=== PATIENT | female | born 1975 | race Caucasian/White ===

== ENCOUNTER → 2023-01-10 | Outpatient (CLI) | payer SELFPAY ==
--- NOTE | 2023-01-10 09:54 | RAD_ITS ---
EXAM: XR RIGHT HAND COMPLETE, 3 OR MORE VIEWS CLINICAL INDICATION: POLYARTHRALGIA TECHNIQUE: Frontal, lateral and oblique views of the right hand. COMPARISON: No relevant prior studies available. FINDINGS: BONES/JOINTS: Unremarkable. No acute fracture. No subluxation. Normal alignment. Preservation of the joint space. No sclerotic or destructive changes observed. SOFT TISSUES: Unremarkable. No soft tissue swelling or gas. No radiopaque foreign body. RAD/Hand Min 3 Views IMPRESSION: Negative right hand x-rays. Electronically Signed: Davin Vargas MD at 4:15 EDT ,
--- NOTE | 2023-01-10 09:54 | RAD_ITS ---
INDICATION: POLYARTHRALGIA EXAMINATION/TECHNIQUE: X-RAY - XR Sacrum/Coccyx Min 2 Views COMPARISON: None. FINDINGS: SACRUM/COCCYX: No displaced fracture, destructive or sclerotic lesions. Note that overlapping bowel shadows may however obscure fine detail in the frontal view. Normal bilateral hip alignment with preserved joint spacing and mild superior acetabular osteophyte formation. SACRO-ILIAC JOINTS: Normal alignment. No erosive changes or gross sclerosis. Minimal inferior osteophyte formation. SOFT TISSUES: No soft tissue swelling or gas. Bilateral tubal ligation clips. Large colonic stool burden. RAD/Sacrum-Coccyx min 2 Views IMPRESSION: No evidence of sacroiliitis Mild right hip osteoarthritis. Electronically Signed: Asif Sanchez MD at 3:16 EDT ,
== END | disposition home or self-care (01) ==
PROVIDERS: PCP Physician Assistant; Referring Provider Physician Assistant; Visit Provider Physician Assistant
DX: M25.50 Pain in unspecified joint (principal)
CPT/HCPCS: 72220; 73130

== ENCOUNTER 2023-08-29 08:42 | Day surgery (SDC) | payer SELFPAY ==
[2023-08-29] VITALS (7 sets, daily range): BP systolic 75–124; BP diastolic 56–72; PULSE 42–80; RESP 16–18; TEMP 36.1–36.7; O2SAT 99–100; BMI 22.9
--- OUTSIDE RECORDS SUMMARY | 2023-08-29 08:54 | XMS RPT_ITS | CCD ---
Author Name Unknown Address [address] [place] [address] Organization [facility] Care Team Providers Care Associate Embalmer/Funeral Director Name Role Phone EVELYNE FLANNERY Consulting Unavailable EVELYNE FLANNERY Primary Care Unavailable MINNIE THOMSON DO Attending Unavailable EVELYNE FLANNERY Primary Care Unavailable MINNIE THOMSON DO Attending Unavailable EVELYNE PAUL Attending Unavailable EVELYNE PAUL Consulting Unavailable EVELYNE PAUL Primary Care Unavailable EVELYNE PAUL Admitting Unavailable PROVIDER, UNKNOWN Consulting Unavailable Evelyne Paul PA-C Unavailable Evelyne Paul PA-C Unavailable Urologist Provider Unavailable Unavailable Railroad Car Truck Builder/Gynecology Prov. Unavailable Un available [facility] Unavailable [phone] Rheumatolgy Provider Unavailable Unavailable Jess Stephen PA-C Unavailable Melvin PERDOMO, Joel Unavailable Unavailable Froy OSEI, Maria D Lyman Unavailable Unavailable Maria Elena KNOTTING MACHINE OPERATOR, Jeanine Dobbs Unavailable Unavailab rocío Good MD, Marty Mendez Unavailable Vess KNOTTING MACHINE OPERATOR, Rachana Ayala Unavailable Unavailable Franklin DE LA ROSANSonya Unavailable Unavailabl e Unavailable Unavailable Medications Completed/Discontinued Medications Medication Drug Class(es) Dates Sig (Normalized) Sig (Original) azithromycin 250 mg oral tablet (2 sources) Macrolide Antimicrobial Start: 03-17-2011 End: 10-23-2012 ZITHROMAX Z-YESSENIA, 250MG (Oral Tablet) ; 2 (two) Tabs day one, then one daily for 4 days for 0 days Quantity: 1 {Z-pack} Refills: 0 Ordered: 23-Oct-2012 FOZIA Stephen Start: 17-Mar-2011 End: 23-Oct-2012 Status: Inactive methylPREDNISolone 4 mg oral tablet (2 sources) Corticosteroid Start: 06-17-2020 End: 06-23-2020 Medrol 4 MG Oral Tablet Therapy Pack ; 1 Tab as directed for 6 days Quantity: 1 {Dose_Pack} Refills: 0 Ordered: 17-Jun-2020 FOZIA Stephen Start: 17-Jun-2020 End: 23-Jun-2020 Status: Inactive predniSONE 20 mg oral tablet (2 sources) Start: 03-23-2016 End: 02-01-2018 take 3 tablets by mouth once daily, then take 2 tablets by mouth once daily, then take 1 tablet by mouth once daily, then take 0.5 tablet by mouth once daily PredniSONE 20 MG Oral Tablet ; 1 (one) Tablet as directed below for 0 days Quantity: 20 {Tablet} Refills: 0 Ordered: 01-Feb-2018 FARNAZ Mcduffie Start: 23-Mar-2016 End: 01-Feb-2018 Status: Inactive Comments: Take 3tabs qd for 3 days thenTake 2tabs qd for 3 days thenTake 1tab qd for 3 days thenTake 1/2tab qd for 4 days. Problems Active Problems Problem Classification Problem Date Documented Da te Episodic/Chronic Abdominal pain (8 sources) Pelvic and perineal pain; Translations: [Acute abdominal pain] Onset: 05-19-2023 Episodic Allergic reactions (4 sources) Inflammatory dermatosis; Translations: [Dermatitis, unspecified] 10-23-2012 Episodic Gastrointestinal hemorrhage (4 sources) Hematochezia; Translations: [Melena] 07-10-2023 Episodic Genitourinary symptoms and ill-defined conditions (8 sources) Microscopic hematuria; Translations: [Other microscopic hematuria] 07-12-2023 Episodic Menopausal disorders (4 sources) Postmenopausal bleeding; Translations: [Postmenopausal bleeding] 01-04-2023 Chronic Other aftercare (4 sources) Drug indicated; Translations: [Other truck terminal manager (current) drug therapy] 03-17-2011 Episodic Other connective tissue disease (2 sources) Pain in right hand; Translations: [Pain in right hand] Onset: 05-19-2023 Episodic Other connective tissue disease (2 sources) Pain in left hand; Translations: [Pain in left hand] Onset: 05-19-2023 Episodic Other female genital disorders (4 sources) Pain in female genitalia on intercourse; Translations: [Unspecified dyspareunia] 01-04-2023 Chronic Other non-traumatic joint disorders (8 sources) Joint pain; Translations: [Pain in unspecified joint] 11-19-2018 Episodic Other non-traumatic joint disorders (4 sources) Joint swelling; Translations: [Effusion, unspecified joint] 01-04-2023 Episodic Other non-traumatic joint disorders (8 sources) Multiple joint pain; Translations: [Pain in unspecified joint] 01-12-2023 Episodic Other screening for suspected conditions (not mental disorders or infectious disease) (20 sources) Breast finding ; Translations: [Inconclusive mammogram] 01-04-2023 Episodic Unclassified (2 sources) deliveries 01-04-2023 Past or Other Problems Problem Classification Problem Date Documented Da te Episodic/Chronic Unclassified (2 sources) Abdominal pain - The onset of the abdominal pain has been gradual and has been occurring in a persistent pattern for 1 year. The course has been constant. The pain is described as moderate. The pain is located in the right lower quadrant and does not radiate. The symptoms are aggravated by nothing (she feels that occasionally when she has excess gas, mass/fulness seems to move and laying directly on stomach helps to relieve pain) but are relieved by nothing (sometimes lying on stomach, pain is relieved). There has been no associated abdominal distention, amenorrhea, bloating, bloody stools, constipation, dark urine, diarrhea, dysuria, fever, heartburn, hematuria, jaundice, nausea, vaginal bleeding or vomiting. Note for Abdominal pain : patient is , 3 csections and 1 vaginal delivery; DENIES pain, is here today for palpable mass in abdomen - finds it difficult to describe and qualify 11-19-2018 Unclassified (2 sources) Hand pain - The onset of the hand pain has been gradual following no specific incident and has been occurring in an intermittent pattern for 3 days (states that she has has some stifness in the thumb over the past 2 months, but no pain, redness or swelling until 2 days ago). The course has been gradually worsening. The hand pain is characterized as a moderate sharp stabbing. The hand pain is described as being located in the thumb. The hand pain is aggravated by any movement. The pain has been relieved by ice and NSAIDs. The symptoms have been associated with joint swelling, painful ROM, decreased ROM, warmth, difficulty opening doors and difficulty with fine motor skills, but have not been associated with fever or chills. There have been no previous diagnostic tests. There has been no previous evaluations. There has been no previous occupational therapy. There have been no previous surgeries. There has been no use of assistive devices. Note for Hand pain : Mom has history of RA; she denies excess alcohol or organ meat consumption 03-23-2016 Results Test Name Value Interpretation Reference Range Facil ity Vital Signs Date Time Vital Sign Value Performing Clinician Faci lity 01-04-2023 09:55-0400 Body weight 55.34 kg Joel Charles [facility], [facility] 01-04-2023 09:55-0400 Diastolic blood pressure 64 mm[Hg] Joel Charles [facility], [facility].; [facility], [facility]. Encounters Encounter Date Encounter Type Care Provider Facility Start: 07-12-2023 End: 07-12-2023 Orders Evelyne Paul PA-C [facility] [facility] Start: 07-10-2023 End: 07-10-2023 Orders Evelyne Paul PA-C [facility] [facility] Start: 07-08-2023 End: 07-08-2023 ambulatory EVELYNE Cheri PAUL [facility] Start: 07-05-2023 End: 07-05-2023 Orders Evelyne Paul PA-C [facility] [facility] Start: 05-19-2023 End: 05-24-2023 ambulatory EVELYNE PAUL PA Facility:A Start: 01-12-2023 End: 01-12-2023 Orders Evelyne Paul PA-C [facility]: [facility] [facility]. Start: 01-06-2023 End: 01-06-2023 Orders Evelyne Paul PA-C Work Phone: [facility], [facility] Start: 01-04-2023 End: 01-04-2023 Patient encounter procedure Evelyne Paul PA-C Work Phone: [employer] Start: 01-04-2023 End: 01-04-2023 Patient encounter status Joel Charles CONOR [employer] [employer]. Start: 06-17-2020 End: 06-17-2020 Medication Evelyne Paul PA-C Work Phone: [employer]. Start: 11-20-2018 End: 11-20-2018 Orders Evelyne Paul PA-C Work Phone: [employer]. Start: 11-19-2018 End: 11-19-2018 Patient encounter procedure Evelyne Paul PA-C Work Phone: [employer]. Start: 05-03-2017 End: 05-04-2017 Ambulatory Facility:[facility] Start: 03-23-2016 End: 03-23-2016 Patient encounter procedure Evelyne Paul PA-C Work Phone: [employer]. Start: 06-08-2015 End: 06-08-2015 Orders Evelyne Paul PA-C Work Phone: [employer]. Start: 05-07-2015 End: 05-07-2015 Historical Summary Evelyne Paul PA-C Work Phone: [employer]. Start: 10-23-2012 End: 10-23-2012 Manual pelvic examination Jess Stephen PA-C Work Phone: [employer] [employer]. Start: 10-23-2012 End: 10-23-2012 Patient encounter procedure Evelyne Paul PA-C Work Phone: [employer]. Start: 10-19-2012 End: 10-22-2012 Orders Evelyne Paul PA-C Work Phone: [employer]. Start: 10-10-2012 End: 10-10-2012 Orders Evelyne Paul PA-C Work Phone: [employer] Start: 03-17-2011 End: 03-17-2011 Medication Evelyne Humberto MARCELO Work Phone: [employer] Procedures Date Procedure Procedure Detail Performing Clinician Start: 01-06-2023 End: 01-12-2023 Radex hand minimum 3 views Evelyne Cheri Paul PA-C Work Phone: Start: 01-04-2023 End: 01-04-2023 Depression screening Evelynealfonso Castelan Work Phone: Start: 01-04-2023 End: 01-04-2023 Scr dep neg, no plan reqd Evelyne Alonzo Rachid BREWER-C Work Phone: Start: 11-20-2018 End: 11-26-2018 Ct abdomen & pelvis w/contrast material Jess Stephen PA-C Work Phone: Start: 06-08-2015 End: 06-22-2015 Us breast uni real time with image complete Marty Good MD Work Phone: Start: 04-30-2015 End: 04-30-2015 Screening mammography Joel Charles LPN Plan of Treatment Date Care Activity Detail Author Start: 01-04-2023 Screening digital br east tomosynthesis bi Mammogram 3D (tomosynthesis), bilateral ([id number]) Start: 04-Jan-2023 [facility]; [employer] Payers Date Payer Category Payer Self-pay 1975 Unknown [id number] 1975 Unknown [id number] Social History Date Type Detail Facility Non Drinker/No Alcohol Use Non Drinker/No Alcohol Use [facility] [facility] [facility] Tobacco Use: Tobacco Use: ; N ever smoker. [facility] [employer] [facility] [employer] [facility] Female [facility] [email or web address]; [employer] Work Phone: Never smoked tobacco [employer]; [employer] Work Phone: Clinical Note 05-20-2023 Note Date & Type Note Facility 05-20-2023 Note . MICRO - Microbiology PROCEDURE: Urine Culture [*1] SOURCE: Urine, Clean Catch BODY SITE: COLLECTED DATE/TIME: 05/19/2023 10:21 EDT RECEIVED DATE/TIME: 05/19/2023 16:53 EDT START DATE/TIME: 05/19/2023 16:53 EDT FREE TEXT SOURCE: FINAL REPORTS Final Report [] Verified Date/Time/Personnel: 05/20/2023 14:29 EDT <10,000 cfu/ml. No Significant growth. Sensitivity not indicated. Performing Locations *1: This test was performed at: [address] ([place]) Summary Purpose Family History Breast Cancer Status:Active Comments:Paterna l Aunt. Sister. Sister was tested and it was not genetic Cancer Status:Active Comments:Paterna l Aunt. unknown primary source, but has mets throughout body Hypertension Status:Active Comments:Father. Osteoarthritis Status:Active Comments:Mother. Breast Cancer Status:Active Comments:Paterna l Aunt. Sister. Sister was tested and it was not genetic Cancer Status:Active Comments:Paterna l Aunt. unknown primary source, but has mets throughout body Hypertension Status:Active Comments:Father. Osteoarthritis Status:Active Comments:Mother. Advance Directives No Advanced Directives Records FoundNo Advanced Directives Records FoundNo Advanced Directives Records FoundNo Advanced Directives Records FoundNo Advanced Directives Records Found Additional Source Comments INFORMATION SOURCE (unrecogn ized section and content) DATE CREATED AUTHOR AUTHOR'S ORGANIZ ATION 01/10/2023 [facility] DATE CREATED AUTHOR AUTHOR'S ORGANIZ ATION 05/28/2023 [facility] DATE CREATED AUTHOR AUTHOR'S ORGANIZ ATION 07/10/2023 [facility] DATE CREATED AUTHOR AUTHOR'S ORGANIZ ATION 07/11/2023 [facility] FOR RECORDS PERTAINING TO PATIENTS WHO ARE OR HAVE BEEN ENROLLED IN A CHEMICAL DEPENDENCY/SUBSTANCEABUSE PROGRAM, SOME INFORMATION MAY BE OMITTED. This clinical summary was aggregated from multiple sources. Caution should be exercised in using it in the provision of clinical care. This summary normalizes information from multiple sources, and as a consequence, information in this document may materially change the coding, format and clinical context of patient data. In addition, data may be omitted in some cases. CLINICAL DECISIONS SHOULD BE BASED ON THE PRIMARY CLINICAL RECORDS. [facility]. provides no warranty or guarantee of the accuracy or completeness of information in this document.
--- NOTE | 2023-08-29 09:00 | PCM.HP.BLA ---
History and Physical Date of Admission: 08/29/23 Intake Vital Signs 07/28/2313:09 Height 5 ft 1 in Weight: 125 lb BMI 23.6 BP 109/70 Blood Pressure Location Rt brachial Position Sitting Respiration 17 Pulse 76 Pulse Source Monitor Temp 97.4 F L Temp Source Temporal Pulse Oximetry (%) 98 Oxygen Delivery Method room air Intake Visit Reasons: BLOOD IN STOOL Chief Complaint: blood in stool Is patient in pain?: No Allergies No Known Allergies Allergy (Verified 07/28/23 13:11) Medications tumeric 100 mg-eliane 150 mg-olive 50 mg-oreg 150 mg-caprylate capsule cap PO 07/28/23 [History Confirmed 07/28/23] PFSH Surgical History (Updated 07/28/23 @ 13:09 by Brook Parada) Previous section Family History (Updated 07/28/23 @ 13:09 by Brook Parada) Sister Breast cancerFather Hypertension Social History (Updated 07/28/23 @ 13:09 by Brook Parada) Smoking Status: Never smoker alcohol intake: never substance use type: does not use HPI HPI HPI: Patient is a 48-year-old female who had 1 episode of bloody stool. Patient noted that it was not painful. The stool was not hard. The patient does not have family history of colon cancer and she has never had a colonoscopy. ROS General General: No weight change, appetite, fatigue, colon cancer, breast cancer or weakness HEENT HEENT: No difficulty swallowing, eye injury, eye surgery, swollen glands or hoarseness Endo Endocrine: No thyroid disease, diabetes mellitus, thyroid cancer, Hair loss, heat intolerance or cold intolerance Skin Skin: No rash or changing moles Musc Musculoskeletal: Yes arthritis; No back problems, rheumatoid arthritis, gout or joint pain Cardio Cardiovascular: No murmur, pacemaker, heart disease, atrial fibrillation, high blood pressure, heart attack, heart stent, palpitations, shortness of breat with exertion or chest pain Psych Psychiatric: No depression, anxiety or hearing voices Resp Respiratory: No shortness of breath, No sleep apnea, No cough, No COPD, No asthma, No emphysema and No wheezing Gastro Gastrointestinal: Yes abdominal pain, No nausea or vomiting, No diarrhea, Yes constipation, Yes blood in stool, No acid reflux, Yes hemorrhoids, No ulcers, No gallbladder problem and No black,tarry stools Mahendra Hematologic: No blood thinners, No blood disorders, No bleeding, No anemia and No blood clots Neuro Neurologic: No system reviewed and no additional complaints, except as documented, No as per HPI, No abnormal gait, No abnormal hearing, No abnormal movements, No abnormal speech, No behavioral changes, No burning sensations, No confusion, No convulsions, No disequilibrium, No dizziness, No localized weakness, No frequent falls, No headache(s), No lack of coordination, No loss of vision, No memory loss, No numbness, No other visual disturbances, No radicular pain, No restless legs, No sensory deficit, No syncope, No tingling, No tremor(s), No weakness and No other Exam Const General: cooperative Orientation: alert and oriented x3 HENMT Head: normal to inspection Neck Neck: normal visual inspection and full ROM Chest Chest palpation & inspection: normal inspection of the chest Resp Effort & Inspection: normal respiratory effort Auscultation: clear to auscultation bilaterally Cardio Rate: regular rate Rhythm: regular rhythm GI Inspection: non-distended Palpation: soft and nontender Skin General: no rashes or lesions noted Neuro General: patient alert and patient oriented x3 Extrem General: full ROM Psych Appearance: grossly normal Mental Status: mental status grossly normal Assessment and Plan Assessment and Plan (1) Blood in stool: Status: Acute Plan: Patient had an episode of bright red blood in the stool. It has not happened since then. She has never had a colonoscopy and I recommend colonoscopy to evaluate. I explained endoscopy in detail to the patient. I explained the risks including but not limited to stroke or heart attack with anesthesia, perforation of the GI tract, bleeding, infection. I explained that any of these could necessitate further emergency surgery. The patient understands and all questions were answered sufficiently. The patient wishes to proceed with procedure. Allen Sethi MD Pager: [facility] [address] [place] [address], [address] [place] [address] Office: I have examined the patient and the H&P has been reviewed. There are no clinical changes since date of exam.
[2023-08-29] MEDS: Lactated Ringers 1,000 ML 15 ML IV (09:20)
--- NOTE | 2023-08-29 09:45 | COLBX_PTH ---
PATHOLOGY RESULTS PATIENT: ARTURO BARBOSA LOC: EN U#:[id number] AGE/SX: 48/F ROOM: RE08/29/[address]: Dr. Allen Sethi MD : 1975 BED: DIS: 08/29/2023 SPEC #: [id number] RECD: 08/29/23 12:04 STATUS: HEYDI ERLIN #: [id number] VIKI: 08/29/23 09:[address]: Allen Sethi DEPT: SURGICAL PATHOLOGY RECD BY: Margot Lopez ENTERED: 08/29/23 12:28 SP TYPE: COLON BX OTHR DR: DANIELLA Brody Tissues: Sigmoid colon biopsy Procedures: Surgery Specimen Level IV HEADER OPERATION: Colonoscopy, polypectomy PRE-OP DIAGNOSIS: Blood in stool TISSUE SUBMITTED: Sigmoid polyp MICROSCOPIC DIAGNOSIS Sigmoid polyp, polypectomy: Inflammatory polyp. SJ:angel luis 08/30/2023 MICROSCOPIC DESCRIPTION Slides are reviewed. GROSS DESCRIPTION Received in fixative is one container labeled with the patient's name and designated sigmoid polyp. The specimen consists of two irregular fragments of light robertson soft tissue that in aggregate measure 0.5 x 0.5 x 0.3 cm and 0.3 x 0.3 x 0.1 cm. The specimen is totally submitted in one cassette. / SJ:angel luis 08/29/2023 TC:3 CPT: 51439
--- NOTE | 2023-08-29 10:20 | OP.COLON_ITS ---
Patient Name: Anuja Hanks Procedure Date: 08/29/2023 9:06 AM Date of : 1975 Age: 48 Procedure: Colonoscopy Indications: Rectal bleeding Providers: Allen Sethi MD Referring MD: Allen Sethi MD Medicines: Monitored Anesthesia Care Patient Profile: This is a 48 year old female. Refer to note in patient chart for documentation of history and physical. Last Colonoscopy: none. The patient's first colonoscopy is today. Complications: No immediate complications. Estimated blood loss: Minimal. Procedure: Pre-Anesthesia Assessment: - Prior to the procedure, a History and Physical was performed, and patient medications and allergies were reviewed. The patient's tolerance of previous anesthesia was also reviewed. The risks and benefits of the procedure and the sedation options and risks were discussed with the patient. All questions were answered, and informed consent was obtained. Prior Anticoagulants: The patient has taken no anticoagulant or antiplatelet agents. After reviewing the risks and benefits, the patient was deemed in satisfactory condition to undergo the procedure. After I obtained informed consent, the scope was passed under direct vision. Throughout the procedure, the patient's blood pressure, pulse, and oxygen saturations were monitored continuously. The Colonoscope was introduced through the anus and advanced to the cecum, identified by appendiceal orifice and ileocecal valve. The colonoscopy was performed without difficulty. The patient tolerated the procedure well. The quality of the bowel preparation was good. The ileocecal valve, appendiceal orifice, and rectum were photographed. Scope In: 10:01:03 AM Scope Withdrawal Time 0 hours 6 minutes 6 seconds Scope Out: 10:16:50 AM Total Procedure Duration Time 0 hours 15 minutes 47 seconds Findings: A polyp was found in the sigmoid colon. The polyp was pedunculated. The polyp was removed with a hot snare. Resection and retrieval were complete. The exam was otherwise without abnormality on direct and retroflexion views. Impression: - One polyp in the sigmoid colon, removed with a hot snare. Resected and retrieved. - The examination was otherwise normal on direct and retroflexion views. Recommendation: - Discharge patient to home. - Resume previous diet. - Continue present medications. - Await pathology results. - Repeat colonoscopy in 5 years for surveillance based on pathology results. Procedure Code(s): --- Professional --- 57813, Colonoscopy, flexible; with removal of tumor(s), polyp(s), or other lesion(s) by snare technique Diagnosis Code(s): --- Professional --- D12.5, Benign neoplasm of sigmoid colon K62.5, Hemorrhage of anus and rectum CPT copyright 2021 [employer]. All rights reserved. The codes documented in this report are preliminary and upon remote coders review may be revised to meet current compliance requirements. Allen Sethi MD 08/29/2023 10:19:41 AM This report has been signed electronically. Number of Addenda: 0 Note Initiated On: 08/29/2023 9:06 AM
--- NOTE | 2023-08-29 10:20 | OP.CCLET_ITS ---
08/29/2023 Susan Paul Re : Colonoscopy procedure for Anuja Hanks Dear Humberto This procedure was performed on Tuesday, August 29, 2023. My impressions and recommendations are as follows: Impressions : - One polyp in the sigmoid colon, removed with a hot snare. Resected and retrieved. - The examination was otherwise normal on direct and retroflexion views. Recommendations : - Discharge patient to home. - Resume previous diet. - Continue present medications. - Await pathology results. - Repeat colonoscopy in 5 years for surveillance based on pathology results. My findings are described in the full procedure note, which is enclosed. If I can be of further assistance, please feel free to contact me at Doctor phone number(s): , Work: . Sincerely, Allen Sethi MD 08/29/2023 10:19:41 AM This report has been signed electronically.
== END 2023-08-29 11:39 | disposition home or self-care (01) ==
LOC: EN 08:43 → AC 08:48
PROVIDERS: PCP Physician Assistant; Referring Provider Physician Assistant; Visit Provider Surgery
PROC: 0DJD8ZZ Inspection of Lower Intestinal Tract, Via Natural or Artificial Opening Endoscopic (ICD-10-PCS; CPT 45378; principal; 2023-08-29 09:40)
DX: D12.5 Benign neoplasm of sigmoid colon (principal); K62.5 Hemorrhage of anus and rectum
CPT/HCPCS: 45385; 88305; J7120; J2405

== ENCOUNTER → 2023-09-07 | Outpatient (CLI) | payer SELFPAY ==
--- NOTE | 2023-09-07 15:00 | CT_ITS ---
STUDY: CT ABDOMEN AND PELVIS WITH AND WITHOUT CONTRAST REASON FOR EXAM: Female, 48 years old. MICROHEMATURIA RADIATION DOSAGE (If Supplied By Facility): CTDIvol = ( 9.15 ) mGy, DLP = ( 1370.47 ) mGycm TECHNIQUE: Transaxial images were obtained from the dome of the diaphragm to the symphysis pubis without oral contrast. IV 100mL Isovue-300 was administered. Sagittal and coronal images were reconstructed. Individualized dose optimization techniques were used for this CT. COMPARISON: None. FINDINGS: The visualized lung bases are unremarkable. The visualized portions of the heart are within normal limits. Normal liver. Normal gallbladder and extrahepatic biliary system. Normal spleen. Normal pancreas. Normal bilateral adrenal glands. Normal right kidney. Normal left kidney. Normal visualized stomach. Normal small intestine. Normal colon. The appendix is visualized and appears normal. Normal abdominal aorta. Normal inferior vena cava. Normal retroperitoneum. The urinary bladder is distended. Tubal ligation clips are seen. Normal abdominal wall. Normal osseous structures. CT/CT Abd/Pelvis W/WO Contrast IMPRESSION: Urinary bladder distention. Electronically Signed: Stephen Darnell MD at 15:28 EST ,
--- OUTSIDE RECORDS SUMMARY | 2023-09-07 17:30 | XMS RPT_ITS | CCD ---
Author Name Unknown Address [address] [place] [id number] Organization [facility] Care Team Providers Care Braille Proofreader Name Role Phone EVELYNE FLANNERY Consulting Unavailable EVELYNE FLANNERY Primary Care Unavailable MINNIE THOMSON DO Attending Unavailable EVELYNE FLANNERY Primary Care Unavailable MINNIE THOMSON DO Attending Unavailable EVELYNE PAUL Attending Unavailable EVELYNE PAUL Consulting Unavailable EVELYNE PAUL Primary Care Unavailable EVELYNE PAUL Admitting Unavailable PROVIDER, UNKNOWN Consulting Unavailable Evelyne Paul PA-C Unavailable [phone] Evelyne Paul PA-C Unavailable Urologist Provider Unavailable Unavailable Wire Basket Maker/Gynecology Prov. Unavailable Un available [facility] Unavailable Rheumatolgy Provider Unavailable Unavailable Jess Stephen PA-C Unavailable [phone] Melvin PERDOMO, Joel Unavailable Unavailable Froy OSEI, Maria D Lyman Unavailable Unavailable Maria Elena AUTOMATIC MACHINES SUPERVISOR, Jeanine Dobbs Unavailable Unavailab rocío Good MD, Marty Mendez Unavailable Vess AUTOMATIC MACHINES SUPERVISOR, Rachana Ayala Unavailable Unavailable Franklin DE LA ROSANoSnya Unavailable Unavailabl e Unavailable Unavailable Medications Completed/Discontinued Medications Medication Drug Class(es) Dates Sig (Normalized) Sig (Original) azithromycin 250 mg oral tablet (3 sources) Macrolide Antimicrobial Start: 03-17-2011 End: 10-23-2012 ZITHROMAX Z-YESSENIA, 250MG (Oral Tablet) ; 2 (two) Tabs day one, then one daily for 4 days for 0 days Quantity: 1 {Z-pack} Refills: 0 Ordered: 23-Oct-2012 FOZIA Stephen Start: 17-Mar-2011 End: 23-Oct-2012 Status: Inactive methylPREDNISolone 4 mg oral tablet (3 sources) Corticosteroid Start: 06-17-2020 End: 06-23-2020 Medrol 4 MG Oral Tablet Therapy Pack ; 1 Tab as directed for 6 days Quantity: 1 {Dose_Pack} Refills: 0 Ordered: 17-Jun-2020 FOZIA Stephen Start: 17-Jun-2020 End: 23-Jun-2020 Status: Inactive predniSONE 20 mg oral tablet (3 sources) Start: 03-23-2016 End: 02-01-2018 take 3 [...] Date Documented Da te Episodic/Chronic Abdominal pain (11 sources) Pelvic and perineal pain; Translations: [Acute abdominal pain] Onset: 05-19-2023 Episodic Allergic reactions (6 sources) Inflammatory dermatosis; Translations: [Dermatitis, unspecified] 10-23-2012 Episodic Gastrointestinal hemorrhage (6 sources) Hematochezia; Translations: [Melena] 07-10-2023 Episodic Genitourinary symptoms and ill-defined conditions (12 sources) Microscopic hematuria; Translations: [Other microscopic hematuria] 07-12-2023 Episodic Menopausal disorders (6 sources) Postmenopausal bleeding; Translations: [Postmenopausal bleeding] 01-04-2023 Chronic Other aftercare (6 sources) Drug indicated; Translations: [Other chcf (current) drug therapy] 03-17-2011 Episodic Other connective tissue disease (2 sources) Pain in right hand; Translations: [Pain in right hand] Onset: 05-19-2023 Episodic Other connective tissue disease (2 sources) Pain in left hand; Translations: [Pain in left hand] Onset: 05-19-2023 Episodic Other female genital disorders (6 sources) Pain in female genitalia on intercourse; Translations: [Unspecified dyspareunia] 01-04-2023 Chronic Other non-traumatic joint disorders (12 sources) Joint pain; Translations: [Pain in unspecified joint] 11-19-2018 Episodic Other non-traumatic joint disorders (6 sources) Joint swelling; Translations: [Effusion, unspecified joint] 01-04-2023 Episodic Other non-traumatic joint disorders (12 sources) Multiple joint pain; Translations: [Pain in unspecified joint] 01-12-2023 Episodic Other screening for suspected conditions (not mental disorders or infectious disease) (20 sources) Breast finding ; Translations: [Inconclusive mammogram] 01-04-2023 Episodic Unclassified (3 sources) deliveries 01-04-2023 Past or Other Problems Problem Classification Problem Date Documented Da te Episodic/Chronic Unclassified (3 sources) Abdominal pain - The onset of [...] difficult to describe and qualify 11-19-2018 Unclassified (3 sources) Hand pain - The onset of [...] 09:55-0400 Body weight 55.34 kg Joel Charles [facility], [facility] 01-04-2023 09:55-0400 Diastolic blood pressure 64 mm[Hg] Joel Charles [facility], [facility].; [facility], [facility]. Encounters Encounter Date Encounter Type Care Provider Facility Start: 07-12-2023 End: 07-12-2023 Orders [facility]ely[facility] Paul [facility]C [facility] Start: 07-10-2023 End: 07-10-2023 Orders Evelyne Paul [facility]C [facility] Start: 07-08-2023 End: 07-08-2023 ambulatory EVELYNE Cheri PAUL [facility] Start: 07-05-2023 End: 07-05-2023 Orders [facility]elyne Paul [facility]-C [facility] Start: 05-19-2023 End: 05-24-2023 ambulatory EVELYNE PAUL PA Facility:A Start: 01-12-2023 End: 01-12-2023 Orders [facility]elyne Paul [facility]C [facility]. Start: 01-06-2023 End: 01-06-2023 Orders Evelyne Paul PA-C Work Phone: [facility], [facility] Start: 01-04-2023 End: 01-04-2023 Patient encounter procedure Evelyne Paul PA-C Work Phone: [facility] Start: 01-04-2023 End: 01-04-2023 Patient encounter status Joel Charles [facility]. Start: 06-17-2020 End: 06-17-2020 Medication Evelyne Paul PA-C Work Phone: [facility]. Start: 11-20-2018 End: 11-20-2018 Orders Evelyne Paul PA-C Work Phone: [facility]. Start: 11-19-2018 End: 11-19-2018 Patient encounter procedure Evelyne Paul PA-C Work Phone: [facility]. Start: 05-03-2017 End: 05-04-2017 Ambulatory Facility:[facility] Start: 03-23-2016 End: 03-23-2016 Patient encounter procedure Evelyne Paul PA-C Work Phone: [facility]. Start: 06-08-2015 End: 06-08-2015 Orders Evelyne Paul PA-C Work Phone: [facility]. Start: 05-07-2015 End: 05-07-2015 Historical Summary Evelyne Paul PA-C Work Phone: [facility]. Start: 10-23-2012 End: 10-23-2012 Manual pelvic examination Jess Stephen PA-C Work Phone: [facility]. Start: 10-23-2012 End: 10-23-2012 Patient encounter procedure Evelyne Paul PA-C Work Phone: [facility]. Start: 10-19-2012 End: 10-22-2012 Orders Evelyne Paul PA-C Work Phone: [facility]. Start: 10-10-2012 End: 10-10-2012 Orders Evelyne Paul PA-C Work Phone: [facility] Start: 03-17-2011 End: 03-17-2011 Medication Evelyne Humberto MARCELO Work Phone: [facility] Procedures Date Procedure Procedure Detail Performing Clinician [...] east tomosynthesis bi Mammogram 3D (tomosynthesis), bilateral (40266) Start: 04-Jan-2023 [facility] Payers Date Payer Category Payer Self-pay 1975 Unknown [id number] 1975 Unknown [id number] Social History Date Type Detail Facility Non Drinker/No Alcohol Use Non Drinker/No Alcohol Use [facility] Tobacco Use: Tobacco Use: ; N ever smoker. [facility] Female [facility] [employer]; Yu Rong Work Phone: Never smoked tobacco Yu Rong; Yu Rong Work Phone: Clinical Note 05-20-2023 Note Date [...] Locations *1: This test was performed at: [address] ([place]) Summary Purpose Family History Breast Cancer Status:Active [...] DATE CREATED AUTHOR AUTHOR'S ORGANIZ ATION 05/28/2023 [facility] ([place]) DATE CREATED AUTHOR AUTHOR'S ORGANIZ ATION 07/10/2023 [facility] DATE CREATED AUTHOR AUTHOR'S ORGANIZ ATION 07/11/2023 [facility] FOR RECORDS PERTAINING TO PATIENTS [...] BE BASED ON THE PRIMARY CLINICAL RECORDS. [employer] provides no warranty or guarantee of the accuracy or completeness of information in this document.
== END | disposition home or self-care (01) ==
LOC: CT 14:49
PROVIDERS: PCP Physician Assistant; Referring Provider Urology; Visit Provider Urology
DX: R31.29 Other microscopic hematuria (principal)
CPT/HCPCS: 74178; Q9967